=== PATIENT | female | born 1985 | race Caucasian/White ===

== ENCOUNTER → 2017-06-20 | Outpatient (CLI) | payer BC ==
[~2017-06-20] MED LIST: BCPILLS PO; METH-307 PO; PRLSR20 PO; PROTRIPTYLINE PO; SUMA100T16 PO
--- NOTE | 2017-06-20 15:59 | DIAGNOSTIC IMAGING REPORT ---
R SHOULDER MIN 2 VIEWS CLINICAL HISTORY: 31 years-old Female presenting with RIGHT SHOULDER PAIN. TECHNIQUE: Frontal view in neutral position as well as transscapular Y and axillary views of the right shoulder were obtained. COMPARISON: None. FINDINGS: Glenohumeral and acromioclavicular joints congruent. No significant degenerative change. No acute fracture. Normal morphology of the acromion. Regional soft tissues normal. Visualized portion of the right hemithorax normal. IMPRESSION: No acute osseous injury of the right shoulder. Electronically signed by: Arnol Zhou M.D. 06/20/2017 3:57 PM Dictated Date/Time: 06/20/2017 3:55 PM
== END | disposition home or self-care (01) ==
LOC: C.RDSM 15:42
PROVIDERS: ATTEND Physician Assistant
DX: M25.511 Pain in right shoulder (principal)